=== PATIENT | male | born 1995 | race Caucasian/White ===

== ENCOUNTER 2017-07-01 17:16 | Emergency (ER) | payer BC ==
[~2017-07-01] VITALS: Ht 175.3 cm; Wt 77.4 kg
[~2017-07-01 17:16] MED LIST: IBUP-103 PO
[2017-07-01 17:23] VITALS: Ht 175.3 cm; Wt 77.4 kg
[2017-07-01] MEDS ORDERED: ONDANSETRON INJ 2 MG/ML 2 ML VIAL IV PRN (17:45)
[2017-07-01] MEDS ORDERED: SODIUM CHLORIDE 0.9% 1000ML 1,000 ML IV ONE ×3 (17:45→22:15)
[2017-07-01] MEDS ORDERED: DICYCLOMINE HCL 20 MG TAB PO ONE (17:45)
--- NOTE | 2017-07-01 17:50 | EMERGENCY ROOM VISIT NOTE ---
History First contact with patient: 17:27 Chief Complaint: FLU LIKE SX Stated Complaint: FLU LIKE SX History of Present Illness The patient is a 22 year old male who presents to the Emergency Room with complaints of sudden onset of nausea, vomiting and diarrhea that started today at 1030. It started with copious diarrhea and abdominal cramping. He tried to drink water, which made him vomit. He has vomited twice. He denies any fever or chills. He describes abdominal pain as a severe, intermittent cramping sensation. He denies any known sick contacts. He denies any blood in his stool. No hematemesis. No recent travel Review of Systems 10 system review performed and negative unless noted in HPI or below Past Medical/Surgical History Status post open heart surgery 2 for aortic stenosis/bicuspid aortic valve Social History Smoking Status: Never Smoker Marital Status: single Occupation Status: [employer] student Current/Historical Medications Scheduled PRN Ibuprofen Tab (Advil), 200-600 MG PO Q4H PRN for Pain Promethazine Hcl (Phenergan), 25 MG PO Q6H PRN for Nausea Physical Exam Vital Signs Date Time Temp Pulse Resp B/P (MAP) Pulse Ox O2 Delivery O2 Flow Rate FiO2 07/01/17 23:46 115 18 106/41 95 Room Air 07/01/17 21:58 39.1 120 16 108/41 95 Room Air 07/01/17 20:12 119 18 143/56 96 Room Air 07/01/17 18:21 98 20 129/74 100 Room Air 07/01/17 17:23 37.1 115 20 116/77 99 Room Air Physical Exam GENERAL: 22-year-old male, mildly acutely ill in appearance,, SKIN: The skin was without rashes, erythema, edema, or bruising. HEAD: Normocephalic atraumatic. MOUTH: Mucous membranes dry NECK: Supple without nuchal rigidity. No lymphadenopathy. Cervical spine is nontender. No JVD. HEART: Regular rate and rhythm without murmurs gallops or rubs. LUNGS: Clear to auscultation bilaterally without wheezes, rales or rhonchi. No accessory muscle use. ABDOMEN: Positive bowel sounds x 4.Soft, mild diffuse lower abdominal tenderness. No guarding or rebound tenderness. MUSCULOSKELETAL: No muscle atrophy, erythema, or edema noted. Strength 5/5 throughout. NEURO: Patient was alert and oriented to person place and time. Normal sensation to touch. No focal neurological deficits. Medical Decision & Procedures ER Provider Diagnostic Interpretation: CT abdomen and pelvis IMPRESSION: 1. No evidence of appendicitis. 2. Fluid throughout the colon suggests a diarrheal state. No other evidence of inflammatory change to suggest a more severe colitis. No other acute intra-abdominal pathology. Electronically signed by: Ermias Valle M.D. 07/01/2017 9:28 PM Laboratory Results 07/01/17 18:00 Red Blood Count 6.11, Mean Corpuscular Volume 84.5, Mean Corpuscular Hemoglobin 30.0, Mean Corpuscular Hemoglobin Concent 35.5, Mean Platelet Volume 10.1, Neutrophils (%) (Auto) 90.6, Lymphocytes (%) (Auto) 3.6, Monocytes (%) (Auto) 5.2, Eosinophils (%) (Auto) 0.3, Basophils (%) (Auto) 0.1, Neutrophils # (Auto) 12.15, Lymphocytes # (Auto) 0.48, Monocytes # (Auto) 0.70, Eosinophils # (Auto) 0.04, Basophils # (Auto) 0.02 07/01/17 18:00 Test 07/01/17 18:00 07/01/17 21:00 White Blood Count 13.42 K/uL (4.8-10.8) Red Blood Count 6.11 M/uL (4.7-6.1) Hemoglobin 18.3 g/dL (14.0-18.0) Hematocrit 51.6 % (42-52) Mean Corpuscular Volume 84.5 fL (80-100) Mean Corpuscular Hemoglobin 30.0 pg (25-34) Mean Corpuscular Hemoglobin Concent 35.5 g/dl (32-36) Platelet Count 348 K/uL (130-400) Mean Platelet Volume 10.1 fL (7.4-10.4) Neutrophils (%) (Auto) 90.6 % Lymphocytes (%) (Auto) 3.6 % Monocytes (%) (Auto) 5.2 % Eosinophils (%) (Auto) 0.3 % Basophils (%) (Auto) 0.1 % Neutrophils # (Auto) 12.15 K/uL (1.4-6.5) Lymphocytes # (Auto) 0.48 K/uL (1.2-3.4) Monocytes # (Auto) 0.70 K/uL (0.11-0.59) Eosinophils # (Auto) 0.04 K/uL (0-0.5) Basophils # (Auto) 0.02 K/uL (0-0.2) RDW Standard Deviation 38.6 fL (36.4-46.3) RDW Coefficient of Variation 12.6 % (11.5-14.5) Immature Granulocyte % (Auto) 0.2 % Immature Granulocyte # (Auto) 0.03 K/uL (0.00-0.02) Anion Gap 14.0 mmol/L (3-11) Est Creatinine Clear Calc Drug Dose 78.2 ml/min Estimated GFR () 76.8 Estimated GFR (Non- 66.3 BUN/Creatinine Ratio 19.7 (10-20) Calcium Level 10.7 mg/dl (8.5-10.1) Total Bilirubin 1.5 mg/dl (0.2-1) Aspartate Amino Transf (AST/SGOT) 202 U/L (15-37) Alanine Aminotransferase (ALT/SGPT) 75 U/L (12-78) Alkaline Phosphatase 71 U/L (45-117) Total Protein 9.3 gm/dl (6.4-8.2) Albumin 5.6 gm/dl (3.4-5.0) Globulin 3.7 gm/dl (2.5-4.0) Albumin/Globulin Ratio 1.5 (0.9-2) Lipase 143 U/L (73-393) Urine Color YELLOW Urine Appearance CLEAR (CLEAR) Urine pH 5.0 (4.5-7.5) Urine Specific [place] 1.022 (1.000-1.030) Urine Protein NEG (NEG) Urine Glucose (UA) NEG (NEG) Urine Ketones 3+ (NEG) Urine Occult Blood NEG (NEG) Urine Nitrite NEG (NEG) Urine Bilirubin NEG (NEG) Urine Urobilinogen NEG (NEG) Urine Leukocyte Esterase NEG (NEG) Medications Administered Medications (Trade) Dose Ordered Sig/Ronald Route Start Time Stop Time Status Last Admin Dose Admin Sodium Chloride 1,000 ml @ 999 mls/hr Q1H1M ONCE IV 07/01/17 17:45 07/01/17 18:45 DC 07/01/17 18:02 999 MLS/HR Ondansetron HCl (Zofran Inj) 4 mg Q2H PRN IV 07/01/17 17:45 07/02/17 00:52 DC 07/01/17 18:02 4 MG Sodium Chloride 1,000 ml @ 999 mls/hr Q1H1M ONCE IV 07/01/17 17:45 07/01/17 18:45 DC 07/01/17 17:45 999 MLS/HR Dicyclomine HCl (Bentyl Tab) 20 mg ONE ONCE PO 07/01/17 17:45 07/01/17 17:46 DC 07/01/17 17:45 20 MG Promethazine HCl 25 mg/Sodium Chloride 51 ml @ 204 mls/hr TODAY@1916 IV 07/01/17 19:16 07/01/17 21:00 DC 07/01/17 20:09 204 MLS/HR Dicyclomine HCl (Bentyl Cap) 10 mg NOW ONCE PO 07/01/17 22:15 07/01/17 22:16 DC 07/01/17 22:31 10 MG Sodium Chloride 1,000 ml @ 999 mls/hr Q1H1M ONCE IV 07/01/17 22:15 07/01/17 23:15 DC 07/01/17 22:34 999 MLS/HR Acetaminophen (Tylenol Tab) 1,000 mg NOW STAT PO 07/01/17 22:11 07/01/17 22:12 DC 07/01/17 22:32 1,000 MG Promethazine HCl (Phenergan 25MG Home Pack) 1 homepack UD ONCE PO 07/01/17 23:30 07/01/17 23:31 DC 07/01/17 23:46 1 HOMEPACK ED Course Patient was seen and examined Vital signs including blood pressure were reviewed medications list was verified with patient Labs were obtained, and a saline lock was established The patient was medicated with Zofran 4 mg IV, Bentyl 20 mg p.o. and 2 L of normal saline Upon reevaluation, the patient was still complaining of nausea. He was given Phenergan 25 mg IV Patient was seen and examined by my supervising physician Imaging was performed and reviewed The patient was again reassessed. He was tolerating water. We discussed his workup. He voiced understanding, was comfortable being discharged home I reviewed discharge instructions the patient. They voiced understanding and had no further questions. Medical Decision DIFFERENTIAL DIAGNOSIS: Viral versus bacterial gastroenteritis, Hepatitis, cholecystitis, cholangitis, biliary colic, pancreatitis, appendicitis, inguinal hernia, nephrolithiasis, inflammatory bowel disease, mesenteric adenitis, peptic ulcer disease, GERD, gastritis, pancreatitis,, bowel obstruction, splenic infarct, diverticulitis, mesenteric ischemia, metabolic, peritonitis, among others. This patient is a 22-year-old male that presents to the emergency department complaining of nausea, vomiting, diarrhea and crampy abdominal pain. Workup reveals mild leukocytosis. There is also slight elevation in his creatinine. CT consistent with diarrheal illness. This is likely an infectious GI illness such as Noro virus as there have been confirmed cases on the [facility]. The patient was well hydrated with IV fluids. He had good symptomatic relief. He is tolerating liquids. I believe he is stable to be discharged home with supportive care and very close follow-up. He was comfortable with this plan. He will return with any new or persistent symptoms This chart was completed in part utilizing [employer] Speech Voice Recognition software. Attempts were made to minimize the grammatical errors, random word insertions, pronoun errors and incomplete sentences. Any formal questions or concerns about the content, text or information contained within the body of this dictation should be directly addressed to the provider for clarification. Impression Primary Impression: Gastroenteritis Departure Information Dispostion Home / Self-Care Condition FAIR Prescriptions Promethazine Hcl (Phenergan) 25 Mg Tab 25 MG PO Q6H Y for Nausea, #20 TAB Prov: Charlnee Caballero PA-C 07/01/17 Referrals [facility] (PCP) Patient Instructions [facility] Additional Instructions You have been seen in the emergency department for vomiting, diarrhea and abdominal pain. It is possible that this is due to a viral gastrointestinal illness. Stay well-hydrated with sports drinks such as Gatorade. I would stick to a clear liquid diet for 24 hours. If you are feeling better after 24 hours, you may advance the diet to a bland diet. Please take Phenergan every 6 hours as needed for nausea Bentyl every 8 hours as needed for abdominal cramping please follow-up with [facility] services in the next 48 hours to be rechecked. You should also have repeat blood work. Please avoid drinking alcohol. Please also avoid Tylenol as your liver functions are slightly abnormal. Return to the emergency department if you have any of the following symptoms: -Fever of 103F or greater -Persistent vomiting - Persistent diarrhea -Lethargy -Chest pain -Shortness of breath -Worsening abdominal pain
[2017-07-01] MEDS ORDERED: DICYCLOMINE HCL 10 MG CAP ONE (18:01)
[2017-07-01 18:20] LABS: BASO % 0.1 %; BASO ABS # 0.02 K/uL (0-0.2); EOS % 0.3 %; EOS ABS # 0.04 K/uL (0-0.5); HEMATOCRIT 51.6 % (42-52); HEMOGLOBIN 18.3 g/dL (14.0-18.0); IG# 0.03 K/uL (0.00-0.02); LYMPH % 3.6 %; LYMPH ABS # 0.48 K/uL (1.2-3.4); MEAN CELL VOLUME 84.5 fL (80-100); MEAN CORPUSCULAR HGB CONC 35.5 g/dl (32-36); MEAN PLATELET VOLUME 10.1 fL (7.4-10.4); MONO % 5.2 %; NEUT % 90.6 %; NEUT ABS # 12.15 K/uL (1.4-6.5); PLATELET COUNT 348 K/uL (130-400); RED CELL DISTRIBUTION WIDTH CV 12.6 % (11.5-14.5); RED CELL DISTRIBUTION WIDTH SD 38.6 fL (36.4-46.3); WHITE BLOOD COUNT 13.42 K/uL (4.8-10.8)
[2017-07-01 18:38] LABS: ALBUMIN 5.6 gm/dl (3.4-5.0); CALCIUM 10.7 mg/dl (8.5-10.1); CREATININE 1.47 mg/dl (0.60-1.40); POTASSIUM 4.1 mmol/L (3.5-5.1)
[2017-07-01 18:40] LABS: TOTAL PROTEIN 9.3 gm/dl (6.4-8.2)
[2017-07-01] MEDS ORDERED: PROMETHAZINE HCL INJ 25 MG/ML 1 ML VIAL IV STA (19:16)
[2017-07-01] MEDS ORDERED: PROMETHAZINE HCL INJ 25 MG in SODIUM CHLORIDE 0.9% 50ML 50 ML IV SCH (19:16)
--- NOTE | 2017-07-01 21:30 | DIAGNOSTIC IMAGING REPORT ---
ABD/PELVIS ORAL CONT ONLY CLINICAL HISTORY: 22 years-old Male presenting with lower abd pain r/o appy. TECHNIQUE: Multidetector CT of the abdomen and pelvis was performed after the administration of oral contrast only. IV contrast: None. A dose lowering technique was used consistent with the principles of ALARA (as low as reasonably achievable). COMPARISON: None. CT DOSE (mGy.cm): The estimated cumulative dose is 302.16 mGy.cm. FINDINGS: Lounge [employer] Att[employer] topogram: Unremarkable. Lung bases: Lungs and pleural spaces clear. Normal heart size. No pericardial or pleural effusion. Liver: Normal morphology. Normal density. Biliary: No gross biliary ductal dilatation allowing for noncontrast technique. Normal gallbladder. Pancreas: Normal noncontrast appearance. Spleen: Normal noncontrast appearance. Adrenal glands: Normal noncontrast appearance. Kidneys and ureters: Normal noncontrast appearance. No nephrolithiasis. No hydronephrosis. Normal ureters. Bladder: Circumferential bladder wall thickening suggested, which may be due to underdistention. Pelvic organs: Prostate and seminal vesicles normal. Bowel: Fluid within the colon suggests a diarrheal state. No wall thickening or pericolonic fat stranding. The appendix is normal. No bowel obstruction. Fluid also noted throughout the small bowel. Peritoneal cavity: No free fluid or intraperitoneal gas. Lymph nodes: No gross lymphadenopathy allowing for noncontrast technique. Vasculature: Normal noncontrast appearance. Abdominal wall: Mild pectus carinatum deformity. Musculoskeletal: Normal. IMPRESSION: 1. No evidence of appendicitis. 2. Fluid throughout the colon suggests a diarrheal state. No other evidence of inflammatory change to suggest a more severe colitis. No other acute intra-abdominal pathology. Electronically signed by: Ermias Valle M.D. 07/01/2017 9:28 PM Dictated Date/Time: 07/01/2017 9:23 PM
[2017-07-01 21:58] VITALS: TEMP 39.1
[2017-07-01] MEDS ORDERED: ACETAMINOPHEN 500 MG TAB PO STA (22:11)
[2017-07-01] MEDS ORDERED: DICYCLOMINE HCL 10 MG CAP PO ONE (22:15)
[2017-07-01] MEDS ORDERED: PHENERGAN 25MG HOMEPACK PO ONE (23:30)
[2017-07-01] MEDS ORDERED: PROM25TA9 PO (23:34)
[2017-07-01 23:46] VITALS: BP 106/41; PULSE 115; O2SAT 95
== END 2017-07-01 23:46 | disposition home or self-care (01) ==
LOC: EDBD 17:16 → C.EDB 17:17
DX: K52.9 Noninfective gastroenteritis and colitis, unspecified (principal)